=== PATIENT | male | born 1970 | race Caucasian/White ===

== ENCOUNTER → 2021-09-22 16:23 | Outpatient (CLI) | payer OTHER, SELFPAY ==
--- NOTE | ~2021-09-22 | MR_ITS ---
EXAMINATION: MR lumbar spine wo con DATE: 09/22/2021 16:55 INDICATION: Lumbosacral radiculopathy. Low back pain radiating down the right leg. TECHNIQUE: Magnetic resonance imaging (MRI) of the lumbar spine was performed without intravenous con trast. Sequences included sagittal T2-weighted FSE, sagittal T2-weighted FS FSE, sagittal T1-weighted FSE, and axial T2-weighted FSE. COMPARISON: None FINDINGS: There is 20 degrees levoscoliosis of lumbar spine. Vertebral body heights are normal. There is severely decreased disc height at L3-L4, L4-L5, and L5-S1 with endplate remodeling. The distal sp inal cord signal intensity is normal. The conus medullaris is at T12-L1. The following disc levels ar e specifically discussed: L1-L2: The disc does not extend beyond the endplate margin. There is mild bilateral facet joint osteo arthritis. There is no neural foraminal stenosis. There is no central canal stenosis. L2-L3: The disc does not extend beyond the endplate margin. There is moderate bilateral facet joint o steoarthritis. There is no neural foraminal stenosis. There is no central canal stenosis. L3-L4: The disc is bulging with superimposed right subarticular zone extrusion with mass effect on th e right L4 nerve root in right lateral recess. There is moderate right and mild left facet joint oste oarthritis. There is moderate right and mild left neural foraminal stenosis. There is mild central ca nal stenosis at the midline. There is severe stenosis of right lateral recess. L4-L5: The disc is bulging and has an annular fissure. There is moderate bilateral facet joint osteoa rthritis. There is moderate bilateral neural foraminal stenosis. There is mild central canal stenosis . L5-S1: The disc is bulging and has an annular fissure. There is severe right and moderate left facet joint osteoarthritis. There is mild right and moderate left neural foraminal stenosis. There is mild central canal stenosis. IMPRESSION: 1. Severe lumbar spondylosis. Of note, an extrusion at L3-L4 exerts mass effect on right L4 nerve cornelio t. 2. Lumbar levoscoliosis. Reviewed, dictated and finalized at location A. IMPRESSION: 1. Severe lumbar spondylosis. Of note, an extrusion at L3-L4 exerts mass effect on right L4 nerve root. 2. Lumbar levoscoliosis.
== END ==
PROVIDERS: Visit Provider Anesthesiology Pain Medicine
DX: M54.17 Radiculopathy, lumbosacral region (principal); M54.41 Lumbago with sciatica, right side; M47.816 Spondylosis without myelopathy or radiculopathy, lumbar region; M41.86 Other forms of scoliosis, lumbar region
CPT/HCPCS: 72148